=== PATIENT | male | born 1980 | race Caucasian/White ===

== ENCOUNTER 2020-07-10 13:22 | Emergency (ER) | payer OTHER ==
[~2020-07-10] VITALS: Ht 172.7 cm; Wt 71.2 kg
[2020-07-10] MEDS ORDERED: KETO10TA2 PO (14:30)
[2020-07-10] MEDS ORDERED: DUI500 PO (14:30)
[2020-07-10] MEDS ORDERED: MUPIROCIN22 GM TOP (14:30)
[2020-07-10] MEDS ORDERED: TYLENOL325 MG PO (14:54)
[2020-07-10] MEDS ORDERED: TYLENOL ARTHRI650 MG PO (14:59)
== END 2020-07-10 14:49 | disposition home or self-care (01) ==
LOC: ER 13:22
DX: L03.114 Cellulitis of left upper limb (principal)

== ENCOUNTER 2020-08-01 12:52 | Emergency (ER) | payer OTHER ==
[~2020-08-01] VITALS: Ht 172.7 cm; Wt 68.9 kg
[~2020-08-01 12:52] MED LIST: DUI500 PO; KETO10TA2 PO; MUPIROCIN22 GM TOP; TYLENOL ARTHRI650 MG PO; TYLENOL325 MG PO
[2020-08-01] MEDS ORDERED: CHLORDIAZEPOXID25 MG PO (19:50)
[2020-08-01] MEDS ORDERED: PEPCID AC20 MG PO (19:55)
[2020-08-01] MEDS ORDERED: ZOFRAN4 MG PO (19:55)
== END 2020-08-01 20:08 | disposition home or self-care (01) ==
LOC: ER 12:52
DX: F10.239 Alcohol dependence with withdrawal, unspecified (principal); Z03.818 Encounter for observation for suspected exposure to other biological agents ruled out; Y90.9 Presence of alcohol in blood, level not specified

== ENCOUNTER → 2020-09-02 12:52 | Outpatient (CLI) | payer OTHER ==
[~2020-09-02 12:52] MED LIST changes: +CHLORDIAZEPOXID25 MG PO; +PEPCID AC20 MG PO; +ZOFRAN4 MG PO
== END | disposition home or self-care (01) ==
LOC: LAB 12:52
PROVIDERS: ATTEND Psychiatry & Neurology Neurology
DX: Z20.828 Contact with and (suspected) exposure to other viral communicable diseases (principal)

== ENCOUNTER 2020-10-10 11:03 | Outpatient (CLI) | payer OTHER | END 2020-10-10 11:08 | disposition home or self-care (01) | LOC: RAD 11:03 | PROVIDERS: ATTEND Physical Medicine & Rehabilitation | DX: M54.2 Cervicalgia (principal); M54.6 Pain in thoracic spine; M54.5 Low back pain ==

== ENCOUNTER 2020-11-20 12:24 | Outpatient (CLI) | payer OTHER | END 2020-11-20 12:29 | disposition home or self-care (01) | LOC: LAB 12:24 | PROVIDERS: ATTEND Physical Medicine & Rehabilitation | DX: Z20.828 Contact with and (suspected) exposure to other viral communicable diseases (principal); Z11.59 Encounter for screening for other viral diseases ==

== ENCOUNTER 2020-12-15 08:46 | Outpatient (CLI) | payer OTHER | END 2020-12-15 08:53 | disposition home or self-care (01) | LOC: LAB 08:46 | PROVIDERS: ATTEND Physical Medicine & Rehabilitation | DX: Z03.818 Encounter for observation for suspected exposure to other biological agents ruled out (principal); R05 Cough; R06.1 Stridor; R50.9 Fever, unspecified ==

== ENCOUNTER 2021-08-10 04:50 | Emergency (ER) | payer OTHER ==
[~2021-08-10] VITALS: Ht 172.7 cm; Wt 68.0 kg
[2021-08-10] MEDS ORDERED: ATIVAN1 M1 PO (16:42)
[2021-08-10] MEDS ORDERED: ONDANSETRON ODT4 MG PO (16:43)
[2021-08-10] MEDS ORDERED: PEPCID AC20 MG PO (16:43)
== END 2021-08-10 17:30 ==
LOC: ER 04:50
DX: F10.239 Alcohol dependence with withdrawal, unspecified (principal); Z03.818 Encounter for observation for suspected exposure to other biological agents ruled out